=== PATIENT | female | born 1950 | race Caucasian/White ===

== ENCOUNTER 2019-05-11 07:53 | Day surgery (SDC) | payer OTHER ==
[2019-05-10 14:59] LABS: Absolute Lymphocytes (CBC) 1.4 K/uL (0.7-4.9); Basophils % 0.7 % (0-1.3); Hematocrit 41.6 % (36.0-45.0); Lymphocytes % 22.7 % (15.3-44.8); RBC Red Blood Cell Count 4.28 M/uL (3.86-4.86)
--- NOTE | 2019-05-10 15:16 | RAD REPORT ---
EXAM DESCRIPTION: RAD - Chest Pa And Lat (2 Views) - 05/10/2019 2:49 pm CLINICAL HISTORY: PRE-OP, pending cholecystectomy COMPARISON: No comparisons TECHNIQUE: Frontal and lateral views of the chest were obtained. FINDINGS: The lungs are clear. Heart size is normal and central vasculature is within normal limit s. No pleural effusion or pneumothorax seen. No acute bony finding noted. No aortic abnormality. IMPRESSION: No acute cardiopulmonary process.
[2019-05-10 15:22] LABS: Albumin 3.9 g/dL (3.4-5.0); Bilirubin Direct 0.2 mg/dL (0-0.2); Bilirubin Total 0.5 mg/dL (0.2-1.0); Potassium 3.6 mmol/L (3.5-5.1)
--- NOTE | 2019-05-10 15:52 | EKG ---
Test Date: 2019-05-10 Test Time: 14:36:11 Campus Director: JACK MEASUREMENT RESULTS: Intervals: Rate: 82 MN: 146 QRSD: 78 QT: 382 QTc: 446 [place]: P: 59 MN: 146 QRS: 54 T: 45 INTERPRETIVE STATEMENTS: Normal sinus rhythm Normal ECG No previous ECG available for comparison Electronically Signed On 05-10-19 15:51:17 DOMESTIC CLEANER by Austin Perez
--- OUTSIDE RECORDS SUMMARY | 2019-05-11 07:55 | XMS REPORT | Summary of Care ---
:1950 Author Organization [facility] Address [address] [place] [address] Care Team Providers Name Role Phone Nikko Jay MD Primary Care Provider Reason for Visit Reason Comments Refill Request Encounter Details Date Type Department Care Team Description 11/26/2018 Refill [facility] Orthopaedic Josué Leger, PAC Refill Request Surgery- [place] [address], [place] [address] [place] [phone] Allergies Active Allergy Reactions Severity Noted Date Comments Codeine Unknown - See comments 06/05/2015 Jsruizh-Cyh-Qor Reductase Other - See comments 06/22/2018 Inhibitors documented as of this encounter (statuses as of 11/30/2018) Medications Medication Sig Dispensed Refills Start End Date Status Date ALPRAZolam 0.5 mg Take 1 180 tablet 1 Active tabletIndications: tablet by 9 Anxiety mouth 2 (two) times daily. Fenofibric Acid 135 mg Take 1 90 capsule 4 Active capsuleIndications: capsule by 9 Mixed hyperlipidemia mouth daily. icosapent ethyl 1 gram Take 2 360 capsule 4 Active capsuleIndications: capsules by 9 Mixed hyperlipidemia mouth 2 (two) times daily. hydroCHLOROthiazide 25 Take 1 90 tablet 4 Active mg tabletIndications: tablet by 9 Essential hypertension mouth daily. levothyroxine 75 mcg Take 1 90 tablet 4 Active tabletIndications: tablet by 9 Hypothyroidism, mouth every unspecified type morning. DICLOFENAC 75 mg EC TAKE 1 60 tablet 0 Active tabletIndications: TABLET BY 9 Chronic pain of both MOUTH TWICE shoulders DAILY WITH MEALS DICLOFENAC 75 mg EC TAKE 1 60 tablet 0 11/27/19 Discontinued tabletIndications: TABLET BY 9 19 Chronic pain of both MOUTH TWICE shoulders DAILY WITH MEALS documented as of this encounter (statuses as of 11/30/2018) Active Problems Problem Noted Date Anxiety 06/05/2015 Hyperlipidemia 06/05/2015 HTN (hypertension) 06/05/2015 Hypothyroidism 06/05/2015 documented as of this encounter (statuses as of 11/30/2018) Social History Tobacco Use Types Packs/Day Years Used Date Former Smoker Smokeless Tobacco: Never Used Alcohol Use Drinks/Week oz/Week Comments Yes 0 Standard drinks or equivalent 0.0 Sex Assigned at Date Recorded Not on file Job Start Date Occupation Industry Not on file Not on file Not on file Travel History Travel Start Travel End No recent travel history available. documented as of this encounter Last Filed Vital Signs Not on filedocumented in this encounter Plan of Treatment Health Maintenance Due Date Last Done Comments HEPATITIS C (HCV) SCREEN 1950 DTaP,Tdap,and Td Vaccines (1 - Tdap) 1971 MAMMOGRAM 1992 COLONOSCOPY 2002 Zoster Recombinant Vaccine (SHINGRIX) (1 of 2) 2002 LUNG CANCER SCREEN: Recommended for age 55-80 with 30 + 2007 pack year history Medicare Wellness Visit 2017 Osteoporosis Screening 2017 PNEUMOCOCCAL VACCINES 65+ (1 of 2 - PCV13) 2017 INFLUENZA VACCINE (#1) 2018 documented as of this encounter Results Not on filedocumented in this encounter Visit Diagnoses Diagnosis Chronic pain of both shoulders Pain in joint, shoulder region documented in this encounter Insurance Payer Benefit Plan / Subscriber ID Effective Dates Phone Address Type Group MEDICARE MEDICARE PART A xxxxxxxxxxx 2017-[place]aqu[place] [phone] [address] [place] Medicare & B nt 82 [id number] [place] [phone] AETNA AETNA INDEMNITY [id number] 2017-[place] Indemnity nt documented as of this encounter
--- OUTSIDE RECORDS SUMMARY | 2019-05-11 07:55 | XMS REPORT ---
:1950 Author Organization [facility] Address [address] [place] [address] Dr. Pe[address] [place] [address] Care Team Providers Name Role Phone Unavailable Unavailable Unavailable Problems This patient has no known problems. Allergies, Adverse Reactions, Alerts This patient has no known allergies or adverse reactions. Medications This patient has no known medications.
--- OUTSIDE RECORDS SUMMARY | 2019-05-11 07:56 | XMS REPORT | Summary of Care ---
:1950 Author Organization [facility] Address [address] [place] [address] Care Team Providers Name Role Phone Nikko Jay MD Primary Care Provider Reason for Visit Reason Comments Refill Request Encounter Details Date Type Department Care Team Description 12/01/2018 Refill [facility] Orthopaedic Josué Leger, PAC Refill Request Surgery- [place] [address], [place] [address] [place] [phone] Allergies Active Allergy Reactions Severity Noted Date Comments Codeine Unknown - See comments 06/05/2015 Muxhxmi-Gsk-Ngp Reductase Other - See comments 06/22/2018 Inhibitors documented as of this encounter (statuses as of 12/02/2018) Medications Medication Sig Dispensed Refills Start Date End Date Status ALPRAZolam 0.5 mg Take 1 tablet 180 tablet 1 06/22/2018 Active tabletIndications: by mouth 2 Anxiety (two) times daily. Fenofibric Acid 135 mg Take 1 capsule 90 capsule 4 06/22/2018 Active capsuleIndications: Mixed by mouth hyperlipidemia daily. icosapent ethyl 1 gram Take 2 360 capsule 4 06/22/2018 Active capsuleIndications: Mixed capsules by hyperlipidemia mouth 2 (two) times daily. hydroCHLOROthiazide 25 mg Take 1 tablet 90 tablet 4 06/22/2018 Active tabletIndications: by mouth Essential hypertension daily. levothyroxine 75 mcg Take 1 tablet 90 tablet 4 06/22/2018 Active tabletIndications: by mouth every Hypothyroidism, morning. unspecified type DICLOFENAC 75 mg EC TAKE 1 TABLET 60 tablet 0 11/30/2018 Active tabletIndications: BY MOUTH TWICE Chronic pain of both DAILY WITH shoulders MEALS DICLOFENAC 75 mg EC TAKE 1 TABLET 60 tablet 0 12/02/2018 Active tabletIndications: BY MOUTH TWICE Chronic pain of both DAILY WITH shoulders MEALS documented as of this encounter (statuses as of 12/02/2018) Active Problems Problem Noted Date Anxiety 06/05/2015 Hyperlipidemia 06/05/2015 HTN (hypertension) 06/05/2015 Hypothyroidism 06/05/2015 documented as of this encounter (statuses as of 12/02/2018) Social History Tobacco Use Types Packs/Day Years [...] [address]. [place] Medicare & B nt 82 [id number] [place] [address] AETNA AETNA INDEMNITY [id number] 2017-[employer] Indemnity nt documented as of this encounter
--- OUTSIDE RECORDS SUMMARY | 2019-05-11 07:56 | XMS REPORT | Summary of Care ---
:1950 Author Organization [facility] Address [address] [place] [address] Care Team Providers Name Role Phone Nikko Jay MD Primary Care Provider Reason for Visit Reason Comments Orders Encounter Details Date Type Department Care Team Description 12/01/2018 Telephone [facility] Family Medicine Nikko Jay MD Orders - [address] [address] [place] [address] Allergies Active Allergy Reactions Severity Noted Date Comments Codeine Unknown - See comments 06/05/2015 Iiiybnt-Ain-Chz Reductase Other - See comments 06/22/2018 Inhibitors documented as of this encounter (statuses as of 12/01/2018) Medications Medication Sig Dispensed Refills Start Date [...] as of this encounter (statuses as of 12/01/2018) Active Problems Problem Noted Date Anxiety 06/05/2015 Hyperlipidemia 06/05/2015 HTN (hypertension) 06/05/2015 Hypothyroidism 06/05/2015 documented as of this encounter (statuses as of 12/01/2018) Social History Tobacco Use Types Packs/Day Years [...] filedocumented in this encounter Plan of Treatment Name Type Priority Associated Diagnoses Order Schedule CBC WITH DIFF LAB Routine Essential hypertension 1 Occurrences starting 12/01/2018 until 01/10/2019 COMP. METABOLIC PANEL LAB Routine Essential hypertension 1 Occurrences starting (53327) 12/01/2018 until 01/10/2019 LIPID PANEL LAB Routine Mixed hyperlipidemia 1 Occurrences starting (32602)(TOTAL 12/01/2018 until CHOLESTEROL, 01/10/2019 TRIGLYCERIDES, HDL) FREE T4 LAB Routine Acquired hypothyroidism 1 Occurrences starting 12/01/2018 until 01/10/2019 THYROID STIMULATING LAB Routine Acquired hypothyroidism 1 Occurrences starting HORMONE 12/01/2018 until 01/10/2019 Health Maintenance Due Date Last Done Comments [...] filedocumented in this encounter Visit Diagnoses Diagnosis Mixed hyperlipidemia - Primary Essential hypertension Unspecified essential hypertension Acquired hypothyroidism Unspecified hypothyroidism documented in this encounter Insurance Payer Benefit Plan / Subscriber ID Effective Dates Phone Address Type Group MEDICARE MEDICARE PART A xxxxxxxxxxx 2017-Shaquille [phone] [address] [facility] Medicare & B nt 82 [id number] [place] [address] AETNA AETNA INDEMNITY [id number] 2017-Shaquille Leity nt documented as of this encounter
--- OUTSIDE RECORDS SUMMARY | 2019-05-11 07:56 | XMS REPORT | Summary of Care ---
:1950 Author Organization [facility] - [facility] Address [address] [place] [address] Care Team Providers Name Role Phone Nikko Jay MD Primary Care Provider Encounter Details Date Type Department Care Team Description 12/06/2018 Orders Only [facility] Doctor Unassigned, No [address] [facility] [place] [address] [address] [place] [address] Allergies Active Allergy Reactions Severity Noted Date Comments Codeine Unknown - See comments 06/05/2015 Vvvbozt-Hfv-Ypy Reductase Other - See comments 06/22/2018 Inhibitors documented as of this encounter (statuses as of 12/06/2018) Medications Medication Sig Dispensed Refills Start Date [...] as of this encounter (statuses as of 12/06/2018) Active Problems Problem Noted Date Anxiety 06/05/2015 Hyperlipidemia 06/05/2015 HTN (hypertension) 06/05/2015 Hypothyroidism 06/05/2015 documented as of this encounter (statuses as of 12/06/2018) Social History Tobacco Use Types Packs/Day Years [...] filedocumented in this encounter Plan of Treatment Date Type Specialty Care Team Description 12/06/2018 Screen Examiner Visit Family Medicine Nikko Jay MD [address] [place] [address] [place] [phone] Lab, Adc Fam Pob I Health Maintenance Due Date Last Done Comments [...] (#1) 2018 documented as of this encounter Procedures Procedure Name Priority Date/Time Associated Diagnosis Comments ASSIGNMENT OF BENEFITS Routine 12/06/2018 1:56 PM CDT documented in this encounter Results Not on filedocumented in this encounter Insurance Payer Benefit Plan / Subscriber ID Effective Dates Phone Address Type Group MEDICARE MEDICARE PART A xxxxxxxxxxx 2017-[place] [phone] [address] Medicare & B nt 82 [id number] [place] [address] AETNA AETNA INDEMNITY [id number] 2017-[place] Indemnity nt documented as of this encounter
--- OUTSIDE RECORDS SUMMARY | 2019-05-11 07:56 | XMS REPORT | Summary of Care ---
:1950 Author Organization [facility] Address [address] [place] [address] Care Team Providers Name Role Phone Nikko Jay MD Primary Care Provider Reason for Visit Reason Comments Results Encounter Details Date Type Department Care Team Description 12/09/2018 Telephone [facility] Family Medicine Nikko Jay MD Results - [address] [address] [place] [address] Allergies Active Allergy Reactions Severity Noted Date Comments Codeine Unknown - See comments 06/05/2015 Nbljdfp-Utg-Nqa Reductase Other - See comments 06/22/2018 Inhibitors documented as of this encounter (statuses as of 12/09/2018) Medications Medication Sig Dispensed Refills Start Date [...] as of this encounter (statuses as of 12/09/2018) Active Problems Problem Noted Date Anxiety 06/05/2015 Hyperlipidemia 06/05/2015 HTN (hypertension) 06/05/2015 Hypothyroidism 06/05/2015 documented as of this encounter (statuses as of 12/09/2018) Social History Tobacco Use Types Packs/Day Years [...] Treatment Date Type Specialty Care Team Description 12/27/2018 Office Visit Family Medicine Nikko Jay MD [address] [place] [address] [place] [address] Health Maintenance Due Date Last Done Comments [...] [address] Medicare & B nt 82 [id number] [place] [address] AETNA AETNA INDEMNITY [id number] 2017-[place] Indemnity nt documented as of this encounter
--- OUTSIDE RECORDS SUMMARY | 2019-05-11 07:56 | XMS REPORT | Summary of Care ---
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 [facility] Ac[place] [address] Allergies Active Allergy Reactions Severity Noted Date Comments Codeine Unknown - See comments 06/05/2015 Qqjoshf-Ewu-Avb Reductase Other - See comments 06/22/2018 Inhibitors [...] Priority Associated Diagnoses Order Schedule CBC WITH DIFFERENTIAL LAB Routine Essential hypertension Ordered: 2018 Health Maintenance Due Date Last Done Comments [...] filedocumented in this encounter Visit Diagnoses Diagnosis Essential hypertension Unspecified essential hypertension Mixed hyperlipidemia Acquired hypothyroidism Unspecified hypothyroidism documented in this encounter Insurance Payer Benefit Plan / Subscriber ID Effective Dates Phone Address Type Group MEDICARE MEDICARE PART A xxxxxxxxxxx 2017-[place] [phone] [address] Medicare & B nt 82 [id number] [place] [address] AETNA AETNA INDEMNITY [id number] 2017-[place] Indemnity nt documented as of this encounter
--- OUTSIDE RECORDS SUMMARY | 2019-05-11 07:57 | XMS REPORT | Summary of Care ---
:1950 Author Organization [facility] Address [address] [place] [address] Care Team Providers Name Role Phone Nikko Jay MD Primary Care Provider Reason for Visit Reason Comments Follow-up Encounter Details Date Type Department Care Team Description 12/27/2018 Office Visit [facility] Family Nikko Jay Renal insufficiency (Primary Dx); Medicine - Dylan Barrett MD [place] [address] [place] [address] [facility] [address] [place], [place] [phone] Allergies Active Allergy Reactions Severity Noted Date Comments Codeine Unknown - See comments 06/05/2015 Qqhrsfj-Rxn-Drc Reductase Other - See comments 06/22/2018 Inhibitors documented as of this encounter (statuses as of 12/27/2018) Medications Medication Sig Dispensed Refills Start End Date Status Date Fenofibric Acid 135 mg Take 1 90 [...] 9 Hypothyroidism, mouth every unspecified type morning. ALPRAZolam 0.5 mg Take 1 180 tablet 1 Active tabletIndications: tablet by 9 Anxiety mouth 2 (two) times daily. ALPRAZolam 0.5 mg Take 1 180 tablet 1 12/28/19 Discontinued tabletIndications: tablet by 9 Anxiety mouth 2 (two) times daily. DICLOFENAC 75 mg EC TAKE 1 60 tablet 0 12/28/19 Discontinued tabletIndications: TABLET BY 9 Chronic pain of both MOUTH TWICE shoulders DAILY WITH MEALS DICLOFENAC 75 mg EC TAKE 1 60 tablet 0 12/28/19 Discontinued tabletIndications: TABLET BY 9 19 Chronic pain of both MOUTH TWICE shoulders DAILY WITH MEALS documented as of this encounter (statuses as of 12/27/2018) Active Problems Problem Noted Date Anxiety 06/05/2015 Hyperlipidemia 06/05/2015 HTN (hypertension) 06/05/2015 Hypothyroidism 06/05/2015 documented as of this encounter (statuses as of 12/27/2018) Social History Tobacco Use Types Packs/Day Years [...] of this encounter Last Filed Vital Signs Vital Sign Reading Time Taken Comments Blood Pressure 132/80 12/27/2018 2:45 PM CDT Pulse 107 12/27/2018 2:45 PM CDT Temperature 36.3 C (97.4 F) 12/27/2018 2:45 PM CDT Respiratory Rate 16 12/27/2018 2:45 PM CDT Oxygen Saturation - - Inhaled Oxygen Concentration - - Weight 81.8 kg (180 lb 6.4 oz) 12/27/2018 2:45 PM CDT Height 162.6 cm (5' 4") 12/27/2018 2:45 PM CDT Body Mass Index 30.97 12/27/2018 2:45 PM CDT documented in this encounter Progress Notes Nikko Jay MD - 12/27/2018 3:00 PM CDT CC: patient is here to follow up lab results Dianna is a 68 year old female Patient had mild elevation of her renal function. She has since stopped the diclofenac and is avoiding salt. Asymptomatic. Allergies Allergen Reactions Codeine Unknown - See comments Mieochu-Wuf-Dto Reductase Inhibitors Other - See comments Current Outpatient Medications Medication Sig Dispense Refill ALPRAZolam 0.5 mg tablet Take 1 tablet by mouth 2 (two) times daily. 180 tablet 1 Fenofibric Acid 135 mg capsule Take 1 capsule by mouth daily. 90 capsule 4 hydroCHLOROthiazide 25 mg tablet Take 1 tablet by mouth daily. 90 tablet 4 icosapent ethyl 1 gram capsule Take 2 capsules by mouth 2 (two) times daily. 360 capsule 4 levothyroxine 75 mcg tablet Take 1 tablet by mouth every morning. 90 tablet 4 No current facility-administered medications for this visit. Past Medical History: Diagnosis Date Anxiety 06/05/2015 HTN (hypertension) 06/05/2015 Hyperlipidemia 06/05/2015 Hypothyroidism 06/05/2015 History reviewed. No pertinent surgical history. Social History Socioeconomic History Marital status: Spouse name: Not on file Number of children: Not on file Years of education: Not on file Highest education level: Not on file Occupational History Not on file Social Needs Financial resource strain: Not on file Food insecurity: Worry: Not on file Inability: Not on file Transportation needs: Medical: Not on file Non-medical: Not on file Tobacco Use Smoking status: Former Smoker Smokeless tobacco: Never Used Substance and Sexual Activity Alcohol use: Yes Alcohol/week: 0.0 oz Drug use: No Sexual activity: Not on file Lifestyle Physical activity: Days per week: Not on file Minutes per session: Not on file Stress: Not on file Relationships Social connections: Talks on phone: Not on file Gets together: Not on file Attends sikhism service: Not on file Active member of club or organization: Not on file Attends meetings of clubs or organizations: Not on file Relationship status: Not on file Intimate partner violence: Fear of current or ex partner: Not on file Emotionally abused: Not on file Physically abused: Not on file Forced sexual activity: Not on file Other Topics Concern Not on file Social History Narrative Not on file Family History Problem Relation Age of Onset No Significant Medical Problems Mother No Significant Medical Problems Father Review of Systems BP 132/80 (BP Location: Left arm, Patient Position: Sitting, BP CUFF SIZE: Adult Large) | Pulse 107 | Temp 36.3 C (97.4 F) (Tympanic) | Resp 16 | Ht 5' 4" (1.626 m) | Wt 180 lb 6.4 oz (81.8 kg) | BMI 30.97 kg/m Physical Exam Constitutional: She is oriented to person, place, and time. She appears well- developed and well-nourished. HENT: Head: Normocephalic and atraumatic. Eyes: Pupils are equal, round, and reactive to light. Conjunctivae are normal. Neck: Normal range of motion. Neck supple. No JVD present. No tracheal deviation present. No thyromegaly present. Cardiovascular: Normal rate, regular rhythm, normal heart sounds and intact distal pulses. Exam reveals no gallop and no friction rub. No murmur heard. Pulmonary/Chest: Effort normal and breath sounds normal. No respiratory distress. She has no wheezes. She has no rales. She exhibits no tenderness. Abdominal: Soft. Bowel sounds are normal. She exhibits no distension and no mass. There is no tenderness. There is no rebound and no guarding. Musculoskeletal: Normal range of motion. She exhibits no edema or tenderness. Lymphadenopathy: She has no cervical adenopathy. Neurological: She is alert and oriented to person, place, and time. Skin: Skin is warm and dry. Diagnosis: 1. Renal insufficiency BLOOD UREA NITROGEN CREATININE if no better; refer renal Follow up: prn Patient Care Team: Nikko Jay MD as PCP - General (FM-FAMILY MEDICINE) Plan of care, desired health behaviors, goals,& medication discussed with patient. Education resources & self management tools provided and reviewed with AVS. Patient/guardian/family verbalized understanding & agrees to plan of care. Barriers to care: None Ability to manage care: Good documented in this encounter Plan of Treatment Name Type Priority Associated Diagnoses Order Schedule BLOOD UREA NITROGEN LAB Routine Renal insufficiency Ordered: 12/27/2018 CREATININE LAB Routine Renal insufficiency Ordered: 12/27/2018 Health Maintenance Due Date Last Done Comments [...] filedocumented in this encounter Visit Diagnoses Diagnosis Renal insufficiency - Primary Unspecified disorder of kidney and ureter Anxiety Anxiety state, unspecified documented in this encounter Insurance Payer Benefit Plan / Subscriber ID Effective Dates Phone Address Type Group MEDICARE MEDICARE PART A xxxxxxxxxxx 2017-[place] [phone] [address] Medicare & B nt 82 [id number] [place] [phone] AETNA AETNA INDEMNITY [id number] 2017-[place] Indemnity nt documented as of this encounter
--- OUTSIDE RECORDS SUMMARY | 2019-05-11 07:57 | XMS REPORT | Summary of Care ---
:1950 Author Organization [facility] - [facility] Address [address] [place] [address] Care Team Providers Name Role Phone Nikko Jay MD Primary Care Provider Reason for Visit Reason Comments Follow-up Encounter Details Date Type Department Care Team Description 12/27/2018 Office Visit [facility] Family Nikko Jay Renal insufficiency (Primary Dx); Medicine - Dylan Barrett MD [place] [address] [place] [address] [address] [facility] [address] [place], [place] [phone] Allergies Active Allergy Reactions Severity Noted Date Comments Codeine Unknown - See comments 06/05/2015 Ucxwqmw-Sxv-Cqh Reductase Other - See comments 06/22/2018 Inhibitors [...] Allergen Reactions Codeine Unknown - See comments Brhwquw-Bhd-Icd Reductase Inhibitors Other - See comments Current [...] file Gets together: Not on file Attends jewish service: Not on file Active member of [...] renal Follow up: prn Patient Care Team: iNkko Jay MD as PCP - General (FM-FAMILY [...] [address] Medicare & B nt 82 [id number] [place] [phone] A[employer] AETNA INDEMNITY [id number] 2017-[place] Indemnity nt documented as of this encounter
--- OUTSIDE RECORDS SUMMARY | 2019-05-11 07:57 | XMS REPORT | Summary of Care ---
:1950 Author Organization [facility] - [facility] Address [address] [place] [address] Care Team Providers Name Role Phone Nikko Jay MD Primary Care Provider Reason for Visit Reason Comments Follow-up LAB WORK Encounter Details Date Type Department Care Team Description 12/27/[address] [facility] Family Nikko Jay Renal insufficiency (Primary Dx); Medicine - Dylan Barrett MD [facility] [address] [place] [address] [phone] Allergies Active Allergy Reactions Severity Noted Date Comments Codeine Unknown - See comments 06/05/2015 Iqeyocs-Abp-Kzx Reductase Other - See comments 06/22/2018 Inhibitors [...] 1 12/28/19 Discontinued tabletIndications: tablet by 9 19 Anxiety mouth 2 (two) times daily. DICLOFENAC [...] CDT documented in this encounter Progress Notes Lorenza Wood - 12/27/2018 3:00 PM CDTVenipuncture Collection performed by clean technique. Total of 1 attempts were made. Slight pressureand a bandage/ dressing were applied to the site(s). The patient experienced no complications. Specimens were sent processed to [facility] laboratories. Nikko Alejandro MD - 12/27/2018 3:00 PM CDT CC: patient is here to follow up lab results Dianna is a 68 year old female Patient had mild elevation of her renal function. She has since stopped the diclofenac and is avoiding salt. Asymptomatic. Allergies Allergen Reactions Codeine Unknown - See comments Ozyizzb-Bcq-Bad Reductase Inhibitors Other - See comments Current [...] file Gets together: Not on file Attends adventist service: Not on file Active member of [...] [address] Medicare & B nt [id number] [place] [phone] [employer] AETNA INDEMNITY [id number] 2017-[employer] Indemnity nt documented as of this encounter
--- OUTSIDE RECORDS SUMMARY | 2019-05-11 07:57 | XMS REPORT | Summary of Care ---
:1950 Author Organization [facility] - Health Address [address] [place] [address] Care Team Providers Name Role Phone Nikko Jay MD Primary Care Provider Encounter Details Date Type Department Care Team Description 12/27/2018 Orders Only [facility] Doctor Unassigned, No [address] [facility] [place] [address] [address] [place] [address] Allergies Active Allergy Reactions Severity Noted Date Comments Codeine Unknown - See comments 06/05/2015 Zwydmio-Fma-Eeu Reductase Other - See comments 06/22/2018 Inhibitors documented as of this encounter (statuses as of 12/27/2018) Medications Medication Sig Dispensed Refills Start Date [...] Office Visit Family Medicine Nikko Jay MD [address] [place] [id number] Health Maintenance Due Date Last Done Comments [...] Procedure Name Priority Date/Time Associated Diagnosis Comments NOTICE OF BILLING Routine 12/27/2018 2:35 PM CDT [employer] FOR MEDICARE PATIENTS documented in this encounter Results Not on filedocumented in this encounter Insurance Payer Benefit Plan / Subscriber ID Effective Dates Phone Address Type Group MEDICARE MEDICARE PART A xxxxxxxxxxx 2017-[place] [phone] [address] Medicare & B nt 82 [id number] [place] [phone] A[employer] AETNA INDEMNITY [id number] 2017-[place] Indemnity nt documented as of this encounter
--- OUTSIDE RECORDS SUMMARY | 2019-05-11 07:58 | XMS REPORT | Summary of Care ---
:1950 Author Organization [facility] - [facility] Address [address] [place] [address] Care Team Providers Name Role Phone Nikko Jay MD Primary Care Provider Reason for Visit Reason Comments Follow-up LAB WORK Encounter Details Date Type Department Care Team Description 12/27/2018 Office Visit [facility] Family Nikko Jay Renal insufficiency (Primary Dx); Medicine - Dylan Barrett MD [facility] [address] [address] [facility] [address] [place] [phone] Allergies Active Allergy Reactions Severity Noted Date Comments Codeine Unknown - See comments 06/05/2015 Cbscbrd-Ptd-Lnx Reductase Other - See comments 06/22/2018 Inhibitors documented as of this encounter (statuses as of 12/29/2018) Medications Medication Sig Dispensed Refills Start End [...] as of this encounter (statuses as of 12/29/2018) Active Problems Problem Noted Date Anxiety 06/05/2015 Hyperlipidemia 06/05/2015 HTN (hypertension) 06/05/2015 Hypothyroidism 06/05/2015 documented as of this encounter (statuses as of 12/29/2018) Social History Tobacco Use Types Packs/Day Years [...] no complications. Specimens were sent processed to [facility] laboratories. Nikko Alejandro MD - 12/27/2018 3:00 PM CDT CC: patient is here to follow up lab results Dianna is a 68 year old female Patient had mild elevation of her renal function. She has since stopped the diclofenac and is avoiding salt. Asymptomatic. Allergies Allergen Reactions Codeine Unknown - See comments Ppaxtzw-Xfl-Jqm Reductase Inhibitors Other - See comments Current [...] file Gets together: Not on file Attends yarsanism service: Not on file Active member of [...] documented in this encounter Plan of Treatment Health [...] Procedure Name Priority Date/Time Associated Diagnosis Comments CREATININE Routine 12/27/2018 3:03 Renal insufficiency Results for this PM CDT procedure are in the results section. BLOOD UREA NITROGEN Routine 12/27/2018 3:03 Renal insufficiency Results for this PM CDT procedure are in the results section. documented in this encounter Results CREATININE (12/27/2018 3:03 PM CDT) CREATININE 0.98 0.50 - 1.04 [facility] mg/dL [facility] eGFR Calculation 56.8 mL/min/1.73m2 [facility] (Non-[facility]) [facility] eGFR Calculation 68.8 mL/min/1.73m2 [facility] ([facility]) [facility] Specimen Blood - ARM, LEFT Narrative Performed At Association of Glomerular Filtration Rate (GFR) [facility] and Staging of Kidney Disease* + + +- + | GFR (mL/min/1.73 m2)| With Kidney Damage|Without Kidney Damage + + +- + |>90| Stage one| Normal + + +- + |60-89|S tage two| Decreased GFR + + +- + |30-59|S tage three| Stage three + + +- + |15-29|S tage four | Stage four + + +- + |<15 (or dialysis)|Stage five | Stage five + + +- + *Each stage assumes the associated GFR level has been in effect for at least three months.Stages 1 to 5, with or without kidney disease, indicate chronic kidney disease. Notes: Determination of stages one and two (with eGFR >59mL/min/1.73 m2) requires estimation of kidney damage for at least three months as defined by structural or functional abnormalities of the kidney, manifested by either: Pathological abnormalities or Markers of kidney damage (including abnormalities in the composition of the blood or urine or abnormalities in imaging tests). Performing Organization Address City/State/Zipcode [facility] Number [facility] [id number], [address] [place] [address] BLOOD UREA NITROGEN (12/27/2018 3:03 PM CDT) BUN 11 7 - 23 mg/dL [facility] Specimen Blood - ARM, LEFT Performing Organization Address City/State/Zipcode Phone Number [facility] CLIA: [id number], [address] [place] [address] documented in this encounter Visit Diagnoses Diagnosis Renal insufficiency - Primary Unspecified disorder of kidney and ureter Anxiety Anxiety state, unspecified documented in this encounter Insurance Payer Benefit Plan / Subscriber ID Effective Dates Phone Address Type Group MEDICARE MEDICARE PART A xxxxxxxxxxx 2017-[place] [phone] Medicare & B nt 82 [id number] [place] [address] [employer] AETNA INDEMNITY [id number] 2017-Shaquille Tanner nt documented as of this encounter
--- OUTSIDE RECORDS SUMMARY | 2019-05-11 07:58 | XMS REPORT | Summary of Care ---
:1950 Author Organization [facility] - [facility] Address [address] [place] [address] Care Team Providers Name Role Phone Nikko Jay MD Primary Care Provider Reason for Visit Reason Comments Follow-up LAB WORK Encounter Details Date Type Department Care Team Description 12/27/2018 Office Visit [facility] Family Nikko Jay Renal insufficiency (Primary Dx); Medicine - Dylan Barrett MD [facility] [address] [place] [address] [phone] Allergies Active Allergy Reactions Severity Noted Date Comments Codeine Unknown - See comments 06/05/2015 Dsskojm-Osg-Xmy Reductase Other - See comments 06/22/2018 Inhibitors [...] no complications. Specimens were sent processed to [facility] laboratories. Nikko Alejandro MD - 12/27/2018 3:00 PM CDT CC: patient is here to follow up lab results Dianna is a 68 year old female Patient had mild elevation of her renal function. She has since stopped the diclofenac and is avoiding salt. Asymptomatic. Allergies Allergen Reactions Codeine Unknown - See comments Ubyyyov-Eez-Jaq Reductase Inhibitors Other - See comments Current [...] file Gets together: Not on file Attends voodoo service: Not on file Active member of [...] [address] Medicare & B nt [id number] [place] [phone] [employer] A[employer] INDEMNITY [id number] 2017-[employer] Indemnity nt documented as of this encounter
[2019-05-11] MEDS ORDERED: Ringers Lactate 1,000 ML IV ONE (08:18)
[2019-05-11] MEDS ORDERED: ROCURONIUM 50 MG/5 ML VIAL IV ONE (10:39)
[2019-05-11] MEDS ORDERED: propofoL 200 MG/20 ML VIAL IV ONE (10:39)
[2019-05-11] MEDS ORDERED: FENTANYL CITR 100 MCG/2 ML ONE ×2 (10:39→12:31)
[2019-05-11] MEDS ORDERED: dexAMETHasone 10 MG/ML VIAL ONE (10:39)
[2019-05-11] MEDS ORDERED: LIDOCAINE 2% MPF 5 ML VIAL ONE (10:39)
[2019-05-11] MEDS ORDERED: MIDAZOLAM HCL 2 MG/2 ML INJ ONE (10:39)
[2019-05-11] MEDS ORDERED: GLYCOPYRROLATE 0.2 MG/ML SYR ONE ×2 (10:39→12:43)
[2019-05-11] MEDS ORDERED: CEFOXITIN/SWI 1gm 1 GM/10 ML SYR ONE (11:30)
--- NOTE | 2019-05-11 12:39 | P.BOP ---
Preoperative diagnosis: symptomatic cholelithiasis, acute cholecystitis, gallbladder polyps Postoperative diagnosis: same Primary procedure: Laparoscopic cholecystectomy Oncology Rep Specialist: LOUISA CASSIDY (LINE COOK) Estimated blood loss: <10cc Specimen: gb Findings: as above Anesthesia: General Complications: None Transferred to: Recovery Room Condition: Good
[2019-05-11] MEDS ORDERED: KETOROLAC 30 MG/ML INJ ONE (12:40)
[2019-05-11] MEDS ORDERED: NEOSTIGMINE 1 MG/ML -5 ML ONE (12:44)
[2019-05-11] MEDS ORDERED: ONDANSETRON 4 MG/2 ML VIAL ONE (13:32)
[2019-05-11] MEDS ORDERED: HYDROCODONE/APAP 7.5/325 MG TAB PO ONE (14:00)
[2019-05-11] MEDS ORDERED: HYDROCODONE/APAP 7.5/325 MG TAB ONE (14:01)
[2019-05-11 14:05] VITALS: TEMP 97
[2019-05-11 14:38] VITALS: BP 145/65; O2SAT 96
--- NOTE | 2019-05-14 00:06 | OP ---
Date of Procedure: 05/11/2019 Surgeon: Alexander Burch MD Potato Chip Sorter: Alma Salinas. Preoperative Diagnoses: 1.Symptomatic cholelithiasis. 2.Acute cholecystitis. 3.Gallbladder polyps. Postoperative Diagnoses: 1.Symptomatic cholelithiasis. 2.Acute cholecystitis. 3.Gallbladder polyps. Procedure: Laparoscopic cholecystectomy. Estimated Blood Loss: Less than 10 mL. Specimen: Gallbladder. Anesthesia: General plus local. Indications: This is a case of a 69-year-old patient comes to us with the above diagnoses. Fully ex plained the benefits, alternatives, and risks of laparoscopic, possible open cholecystectomy, which i nclude but are not limited to infection, bleeding, damage to adjacent structures, anesthesia complica tion, choledocholithiasis, bile leak, pancreatitis, [place], and even . She also understands this ma y not relieve any symptoms. She might need more than one surgical intervention. She understood, sig joyce a consent. Description Of Procedure: Patient was brought to the operating room, placed in supine position. Ane sthesia was done without complication. Abdominal area was prepped and draped in a sterile fashion. Marcaine 0.5% was injected for local anesthetic, followed by sharp incision of skin in the infraumbil ical region. Incision was carried down to fascia, which was opened under direct vision. Peritoneum was encountered, opened under direct vision. Vicryl #1 placed inside the fascia. Gerardo trocar was carefully introduced. No bleeding was obtained. I placed 3 more trocars, 5 mm each one of them, epi gastric, right upper quadrant under direct visualization. This allowed me to put a grasper in the fu ndus of the gallbladder, another grasper in the infundibulum, retracted the gallbladder in the infero lateral fashion exposing the triangle of Calot, obtaining critical view of safety. Cystic duct and c ystic artery were clearly isolated, freed circumferentially, and a connection between those and the g allbladder were clearly identified. I proceeded to ligate those by using at least 3 clips proximal, 1 clip distal, ligation in middle. Same was done with the cystic artery. No bile leak. No bleeding . The gallbladder was removed from liver using Bovie cauterizer and removed from abdominal cavity us ing an EndoCatch through the umbilical incision. The area was inspected once again. No bile leak. No bleeding. At that moment, I proceeded to remove the trocars under direct vision. Deflated the pn eumoperitoneum. Closed the fascia with #1 Vicryl, irrigated subcutaneous tissue, closed that with 3- 0 chromic and skin approximated. Sponge count, instrument counts were correct. Patient tolerated th e procedure well. Patient was sent to Recovery in stable condition. KAILA/SHANI Voice ID: [id number] Report ID: [id number]
--- NOTE | 2019-05-14 00:09 | DS ---
Date of Discharge: 05/11/2019 Diagnoses: 1.Symptomatic cholelithiasis. 2.Acute cholecystitis. 3.Gallbladder polyps. Procedure: Laparoscopic cholecystectomy. Disposition: Home. Activity: As tolerated. No heavy lifting. Followup: Follow up in my office in 1 week. Call for appointment [phone]. Discharge Instructions: Keep the area dry for 48 hours, then may shower. Keep Steri-Strips intact. Medications: See orders. KAILA/SHANI Voice ID: [id number] Report ID: [id number]
== END 2019-05-11 14:43 | disposition home or self-care (01) ==
LOC: OR 07:53
PROVIDERS: ATTEND Surgery
PROC: 0FT44ZZ Resection of Gallbladder, Percutaneous Endoscopic Approach (ICD-10-PCS; principal; 2019-05-11 10:00)
DX: K80.12 Calculus of gallbladder with acute and chronic cholecystitis without obstruction (principal); I10 Essential (primary) hypertension; F41.9 Anxiety disorder, unspecified; E05.90 Thyrotoxicosis, unspecified without thyrotoxic crisis or storm; E78.00 Pure hypercholesterolemia, unspecified; Z87.891 Personal history of nicotine dependence; Z83.3 Family history of diabetes mellitus; Z82.49 Family history of ischemic heart disease and other diseases of the circulatory system
CPT/HCPCS: 93005; 85025; 80048; 36415; 82150; 80076; 88304; 83690; 71046; 47562; J2704; J2250; J3010 ×2; J1100; J2710; J7120; J2405